=== PATIENT | female | born 1975 | race African-American/Black ===

== ENCOUNTER 2016-06-07 05:29 | Emergency (ER) | payer SELFPAY | END 2016-06-07 06:26 | disposition home or self-care (01) | LOC: D.ER 05:29 | DX: M54.5 Low back pain (principal); M51.27 Other intervertebral disc displacement, lumbosacral region; F17.200 Nicotine dependence, unspecified, uncomplicated ==

== ENCOUNTER 2016-07-06 12:45 | Emergency (ER) | payer SELFPAY ==
[2016-07-06 13:45] LABS: HCG URINE NEGATIVE (NEGATIVE)
[2016-07-06 13:47] LABS: BASOPHILS 0.2 % (0.0-2.0); EOSINOPHILS 0.7 % (0-7); HEMATOCRIT 40.3 % (36.0-48.0); HEMOGLOBIN 13.6 g/dL (12-16); IMMATURE GRANULOCYTES 0.3 % (0-5); MCH 31.9 pg (26.0-34.0); MCHC 33.7 g/dL (31.0-37.0); MCV 94.4 fL (80.0-100.0); MEAN PLATELET VOLUME 9.6 fL (7.4-10.4); MONOCYTES 5.9 % (2-11); NEUTROPHILS 74.9 % (40-80); PLATELET COUNT 334 10x3/uL (130-400); RBC 4.27 10x6/uL (4.00-5.40); RDW 14.3 % (11.5-14.5); WBC 11.8 10x3/uL (4.8-10.8)
[2016-07-06 13:52] LABS: UDS - AMPHET POSITIVE QUAL (NEGATIVE); UDS - BARB NEGATIVE QUAL (NEGATIVE); UDS - BENZO NEGATIVE QUAL (NEGATIVE); UDS - COCAINE NEGATIVE QUAL (NEGATIVE); UDS - METH NEGATIVE QUAL (NEGATIVE); UDS - OPIATE POSITIVE QUAL (NEGATIVE); UDS - PCP NEGATIVE QUAL (NEGATIVE); UDS - THC POSITIVE QUAL (NEGATIVE)
[2016-07-06 14:03] LABS: APPEARANCE HAZY (CLEAR); BILIRUBIN NEGATIVE (NEGATIVE); COLOR YELLOW (YELLOW); GLUCOSE NEGATIVE (NEGATIVE); KETONE NEGATIVE (NEGATIVE); LEUKOCYTE ESTERASE NEGATIVE (NEGATIVE); NITRITE NEGATIVE (NEGATIVE); PROTEIN NEGATIVE (NEGATIVE); UROBILINOGEN NORMAL (NORMAL)
[2016-07-06 14:04] LABS: ALBUMIN 3.6 g/dL (3.4-5.0); ANION GAP 12.9 mmol/L (8-16); BILIRUBIN - TOTAL 0.27 mg/dL (0.2-1.3); CALCIUM 8.4 mg/dL (8.5-10.1); CARBON DIOXIDE 25.7 mmol/L (21.0-32.0); CREATININE - SERUM 1.1 mg/dL (0.6-1.3); POTASSIUM - SERUM 3.6 mmol/L (3.5-5.1); PROTEIN - SERUM 8.3 g/dL (6.4-8.2)
== END 2016-07-07 01:16 | disposition short-term general hospital (02) ==
LOC: D.ER 12:45
PROVIDERS: Emergency Medicine
DX: R45.851 Suicidal ideations (principal); F33.9 Major depressive disorder, recurrent, unspecified

== ENCOUNTER 2016-09-24 11:34 | Emergency (ER) | payer SELFPAY | END 2016-09-24 13:10 | disposition home or self-care (01) | LOC: D.ER 11:34 | DX: M25.461 Effusion, right knee (principal); M25.562 Pain in left knee; S83.92XA Sprain of unspecified site of left knee, initial encounter; X58.XXXA Exposure to other specified factors, initial encounter; Y93.89 Activity, other specified; Y92.89 Other specified places as the place of occurrence of the external cause; F17.200 Nicotine dependence, unspecified, uncomplicated ==